=== PATIENT | female | born 1985 | race Caucasian/White ===

== ENCOUNTER 2023-03-29 18:12 | Observation (INO) | payer OTHER, SELFPAY ==
[2023-03-29 18:40] VITALS: BP 109/74; PULSE 81; RESP 17; TEMP 36.9; O2SAT 99; BMI 40.3
--- NOTE | 2023-03-29 19:07 | PC.NURSE ---
1845 vitals obtained and patient placed back in lobby until a room in ED is available
[2023-03-29 20:15] VITALS: BP 120/81; PULSE 90; RESP 18; TEMP 37.2; O2SAT 100
[2023-03-29 20:24] LABS: Coronavirus 19, PCR Not Detected (NotDetected)
[2023-03-29 20:25] LABS: Influenza A, PCR Not Detected (NotDetected); Influenza B, PCR Not Detected (NotDetected)
--- NOTE | 2023-03-29 20:29 | CT_ITS ---
PROCEDURE INFORMATION: Exam: CT Abdomen And Pelvis With Contrast Exam date and time: 03/29/2023 8:50 PM Age: 37 years old Clinical indication: Abdominal pain; Localized; Right upper quadrant (ruq); Prior surgery; Surgery date: 1-6 months; Surgery type: , tubal ligation; Additional info: Ruq pain, vomiting, tenderness TECHNIQUE: Imaging protocol: Computed tomography of the abdomen and pelvis with contrast. Radiation optimization: All CT scans at this facility use at least one of these dose optimization techniques: automated exposure control; mA and/or kV adjustment per patient size (includes targeted exams where dose is matched to clinical indication); or iterative reconstruction. Contrast material: ISOVUE; Contrast volume: 75 ml; Contrast route: IV; REPORTING DATA: Count of CT and Cardiac NM exams in prior 12 months: This patient has received 0 known CTs and 0 known cardiac nuclear medicine studies in the 12 months prior to the current study. COMPARISON: No relevant prior studies available. FINDINGS: Liver: Normal. No mass. Gallbladder and bile ducts: Normal. No calcified stones. No ductal dilation. Pancreas: Normal. No ductal dilation. Spleen: Normal. No splenomegaly. Adrenal glands: Right adrenal nodule measures 1.7 x 1.3 cm, further characterization not possible on current study. Left adrenal gland unremarkable. Kidneys and ureters: Normal. No hydronephrosis. Stomach and bowel: Unremarkable. No obstruction. No mucosal thickening. Appendix: Appendix distended to 10 mm with minimal adjacent inflammatory changes. Appendix retrocecal and directed superiorly. No evidence of perforation or drainable collection. Concerning for early appendicitis. Intraperitoneal space: Unremarkable. No free air. No significant fluid collection. Vasculature: Unremarkable. No abdominal aortic aneurysm. Lymph nodes: Unremarkable. No enlarged lymph nodes. Urinary bladder: Unremarkable as visualized. Reproductive: Unremarkable as visualized. Bones/joints: Unremarkable. No acute fracture. Soft tissues: Unremarkable. IMPRESSION: 1. Appendix distended to 10 mm with minimal adjacent inflammatory changes. Appendix retrocecal and directed superiorly. No evidence of perforation or drainable collection. Concerning for early appendicitis. 2. Right adrenal nodule measures 1.7 x 1.3 cm, further characterization not possible on current study.
--- NOTE | 2023-03-29 20:29 | HMH.EDGENADL ---
Discharge Plan Disposition Chief Complaint: Fever Prescriptions Prescriptions: No Action No Known Home Medications Referrals Follow up/Referrals: Provider,Referral, [Primary Care Provider] - See instructions Clinical Impressions Clinical Impression: Acute appendicitis Discharge ED Provider: Bubba Burkett General Adult HPI General Chief complaint: Fever Stated complaint: .5, MENDEZ abd pain Time Seen by Provider: 03/29/23 18:13 Mode of Arrival: Wheelchair Source of Information: Patient Limitations: No Limitations Description of Symptoms (Recalled from ER Triage Doc. by RN): Pt c/o headache, fever tmax 102.5 this AM, insicion pain, and passing large clots with her first period 3 mn post partem. She took Aleve @ 1100 today and currently temp is 98.4. Pt was seen @ [facility] about 2 wk ago and had labs d/t low abd pain. She was told Your period is about to come and it will probably be bad . She had a tubal with her recent . Denies any N/V/D. Denies cough or SOA. She does noted hurts to breathe sometimes . History of Present Illness HPI narrative: 37-year-old female presenting with multiple complaints. Patient states that she is now 3 months out from section. States that she has been having pain on and off for the past couple weeks. Got acutely worse today. Was seen at an outside facility, given Toradol about 2 weeks ago and discharged home. Today, similar pain, however patient states it is worse and throbbing. Lower abdominal, severe intensity, stabbing, does not radiate. Not associated with vaginal discharge or bleeding, no dysuria, hematuria, vomiting, but patient states she had a fever of almost 103 today. Responsive to Tylenol. Related Data Home Medications Medication Instructions Recorded Confirmed No Known Home Medications 03/29/23 03/29/23 Allergies Allergy/AdvReac Type Severity Reaction Status Date / Time No Known Allergies Allergy Verified 03/29/23 19:00 [facility] Disclaimer: The information contained in this section may have been updated after the patient was seen, as this information can be updated by other users. Social History Smoking Status: Current every day smoker alcohol intake: never current occupational status: employed Travel in the last 8 weeks: None ROS Obtained: Yes All systems reviewed & no additional complaints except as documented Physical Exam General General appearance: alert, in no apparent distress, in distress and obese Head Head exam: atraumatic and normocephalic Eye Eye exam: Present normal appearance, PERRL and EOMI ENT ENT exam: Present mucous membranes moist Neck Neck exam: Present normal inspection, full ROM and trachea midline Respiratory Respiratory exam: Present normal lung sounds bilaterally; Absent respiratory distress, wheezes, stridor, accessory muscle use or prolonged expiratory phase Cardiovascular Cardiovascular exam: Present regular rate and normal rhythm Abdominal Exam Abdominal exam: Present soft, tenderness and Day's sign; Absent distention, guarding, rebound, rigidity or normal bowel sounds Abdominal tenderness: Present RUQ (Day sign positive. Patient with severe pain with deep palpation.) and epigastrium; Absent suprapubic (No tenderness overlying section scar) Extremities Exam Extremities exam: Absent edema Neurological Exam Neurological exam: Present alert, oriented X3, CN II-XII intact and normal gait; Absent motor sensory deficit Skin Skin exam: Present warm and dry; Absent diaphoresis or erythema Medical Decision Making Medical Records Medical records reviewed: Yes I reviewed the patient's medical records. Manuel Inquiry Pt receiving controlled substance: No Manuel was queried for this patient: No Vital Signs: 03/29/23 18:40 03/29/23 20:15 Temperature 98.4 F 98.9 F Temperature Source Oral Oral Pulse Rate 90 Pulse Rate
[2023-03-29 20:47] LABS: Microscopic, Urine URINE MICROSCOPIC (MICROSCOPIC)
--- NOTE | 2023-03-29 20:47 | PC.NURSE ---
pt to radiology
[2023-03-29 20:49] LABS: Appearance,Urine CLEAR (Clear); Basophils % 0.2 % (0.1-2.0); Bilirubin,Urine Negative (Negative); Blood, Urine 1+ (Negative); Color,Urine YELLOW (Yellow); Eosinophils % 0.5 % (0.1-12.0); Glucose,Urine (UA) Negative (Negative); Hemoglobin 12.7 g/dL (12.2-16.2); Ketones,Urine Negative (Negative); Leukocyte Esterase,Urine Negative (Negative); Lymphocytes # 1.5 K/mm3 (0.7-4.5); Lymphocytes % 19.6 % (10-50); Mean Corpuscular HGB Conc 31.8 g/dL (31.8-35.4); Mean Corpuscular Hemoglobin 27.1 pg (27.0-31.2); Mean Corpuscular Volume 85.2 fl (81-99); Mean Platelet Volume 7.6 fl (7.4-10.4); Monocytes # 0.4 K/mm3 (0.1-1.0); Neutrophils # 5.9 K/mm3 (1.8-7.8); Neutrophils % 74.7 % (37.0-80.0); Nitrate,Urine Negative (Negative); PH,Urine 6.5 (5.0-8.5); Platelet Count 360 K/mm3 (142-424); Protein,Urine Negative (Negative); Red Blood Count 4.69 M/mm3 (4.20-5.40); Red Cell Distribution Width 15.2 % (11.5-17.5); Specific Gravity, Urine 1.015 (1.005-1.030); Urobilinogen,Urine 0.2 EU/dl (0.2); White Blood Count 7.8 K/mm3 (4.8-10.8)
[2023-03-29 20:52] LABS: Chloride 103 mmol/L (98-107); Sodium 136 mmol/L (136-145)
[2023-03-29 20:53] LABS: Potassium 3.5 mmoL/L (3.5-5.1)
[2023-03-29 20:55] LABS: Alanine Aminotransferase 26 U/L (12-78); Alkaline Phosphatase 91 U/L (38-126); Anion Gap 10.5 mEq/L (5-15); Aspartate Amino Transferase 31 U/L (14-36); Bilirubin,Total 0.2 mg/dl (0.2-1.3); Blood Urea Nitrogen 6 mg/dl (7-17); Calcium 8.3 mg/dl (8.4-10.2); Carbon Dioxide 26 mmol/L (22.0-30.0); Creatinine Clearance Estimated 195 mL/min (50-200); Estimated Glomerular Filt Rate 94 ml/min (>60); GFR (African American) 113 ML/MIN (>60); Glucose 94 mg/dl (74-100); Lipase 25 U/L (23-300)
[2023-03-29 20:56] LABS: Albumin Level 3.9 g/dl (3.5-5.0); Total Protein,Serum 7.9 g/dl (6.3-8.2)
[2023-03-29 21:13] LABS: HCG,Quantitative < 2 mIU/ml (0-5.42)
[2023-03-29 21:51] LABS: Lactic Acid < 0.5 mmol/L (0.7-2.1)
--- NOTE | 2023-03-29 21:53 | PC.NURSE ---
Dr. Salcido pageheather
--- NOTE | 2023-03-29 21:54 | PC.NURSE ---
ED doctor on phone with Dr. Salcido
--- NOTE | 2023-03-29 21:59 | PC.NURSE ---
House notified for admission
[2023-03-29 22:02] LABS: RBC,Urine Occasional #/hpf (0-3); Squamous Epithelial Cell,Urine Occasional #/hpf (0-5); WBC,Urine Occasional #/hpf (0-3)
--- NOTE | 2023-03-29 22:12 | PC.NURSE ---
Report given to ORLIN Bautista; Awaiting transport
[2023-03-29 22:14] VITALS: BP 97/53; PULSE 85; RESP 19; TEMP 37.2; O2SAT 95
--- NOTE | 2023-03-29 22:28 | EXP.HP ---
History of Present Illness *Admission Date: 03/29/23 *Reason for visit:: RLQ abd pain *History of present illness: This is a 37-year-old morbidly obese female with no significant medical history other than current smoker and recent , presented with worsened abdominal pain, vomit and fever. Patient stated that she is now 3 months out from section. Pain got acutely worse today, initially patient blamed on the , so she was seen at an outside facility, given Toradol and discharged home. Pain is described in lower abdominal, severe intensity, stabbing, does not radiate. Not associated with vaginal discharge or bleeding, no dysuria, hematuria, has vomiting and had a fever of almost 103 today. Responsive to Tylenol. Admitted for treatment and management. [facility] Disclaimer: The information contained in this section may have been updated after the patient was seen, as this information can be updated by other users. Medical History (Updated 03/30/23 @ 02:44 by Keegan Gomez APRN) Pneumonia Surgical History (Updated 03/29/23 @ 22:47 by Susi Jiménez RN) H/O dilation and curettage History of Social History (Updated 03/29/23 @ 22:48 by Susi Jiménez RN) Smoking Status: Current every day smoker tobacco type: cigarettes packs per day: 1 years smoked: 25 quit status: not considering quitting alcohol intake: never current occupational status: employed Travel in the last 8 weeks: None Review of Systems Review of Systems Review of systems:: pertinent systems reviewed and negative unless documented below Meds Home Medications and Allergies Home Medications Medication Instructions Recorded Confirmed Type No Known Home Medications 03/29/23 03/29/23 History New Prescriptions to Start Prescriptions: Allergies Allergy/AdvReac Type Severity Reaction Status Date / Time No Known Allergies Allergy Verified 03/29/23 19:00 Exam Data for Last 24 hours Vital signs and Labs for Last 24 Hours: Temp Pulse Resp BP Pulse Ox O2 Del Method 98.9 F 85 19 97/53 L 100 Room Air 03/29/23 22:14 03/29/23 22:14 03/29/23 22:14 03/29/23 22:14 03/29/23 20:15 03/29/23 22:14 Laboratory Results - last 24 hr 03/29/23 20:20: SARS-CoV-2 (PCR) Not detected, Influenza A Untype (PCR) Not detected, Influenza Type B (PCR) Not detected 03/29/23 20:27: WBC 7.8, RBC 4.69, Hgb 12.7, Hct 40.0, MCV 85.2, MCH 27.1, MCHC 31.8, RDW 15.2, Plt Count 360, MPV 7.6, Neut % (Auto) 74.7, Lymph % (Auto) 19.6, [place] % (Auto) 5.0, Eos % (Auto) 0.5, Baso % (Auto) 0.2, Neut # (Auto) 5.9, Lymph # (Auto) 1.5, [place] # (Auto) 0.4, Eos # (Auto) 0.0, Baso # (Auto) 0.0, Sodium 136, Potassium 3.5, Chloride 103, Carbon Dioxide 26, Anion Gap 10.5, BUN 6 L, Creatinine 0.70, Estimated Creat Clear 195, Estimated GFR 94, Est GFR ( Amer) 113, Glucose 94, Calcium 8.3 L, Total Bilirubin 0.2, AST 31, ALT 26, Alkaline Phosphatase 91, Total Protein 7.9, Albumin 3.9, Globulin 4.0 H, Albumin/Globulin Ratio 1.0 L, Lipase 25, HCG, Quant < 2, Urine Color Yellow, Urine Appearance Clear, Urine pH 6.5, Ur Specific [place] 1.015, Urine Protein Negative, Urine Glucose (UA) Negative, Urine Ketones Negative, Urine Blood 1+, Urine Nitrate Negative, Urine Bilirubin Negative, Urine Urobilinogen 0.2, Ur Leukocyte Esterase Negative, Urine RBC Occasional, Urine WBC Occasional, Ur Squamous Epith Cells Occasional, Urine Bacteria None 03/29/23 20:32: Lactate < 0.5 L I & O for Last 24 hours: Intake & Output 03/26/23 03/27/23 03/28/23 03/29/23 23:59 23:59 23:59 23:59 Weight 113.398 kg Constitutional Constitutional: mild distress and cooperative *Routine HEENT Exam Head: Present normocephalic and atraumatic Eye: Present EOMI, PERRL and normal accommodation ENT: Present mucous membranes moist *Routine Neck Exam Neck: Present supple, full ROM and trachea midline *Routine Respiratory Exam Respiratory: Present normal r
--- NOTE | 2023-03-29 22:32 | PC.NURSE ---
pt arrived to floor via wheelchair @[id number]
[2023-03-29 22:39] VITALS: BP 120/73; PULSE 79; RESP 20; TEMP 36.7; O2SAT 97
[2023-03-30] VITALS (14 sets, daily range): BP systolic 107–158; BP diastolic 47–91; PULSE 69–93; RESP 16–18; TEMP 36.7–37; O2SAT 90–99; BMI 44.7
--- NOTE | 2023-03-30 04:36 | PC.NURSE ---
pt admitted for appendicitis. npo after mn for appendectomy in am. vss, a.febrile, reports r lower quadrant pain treated with prn
[2023-03-30 06:36] LABS: Basophils % 0.4 % (0.1-2.0); Eosinophils # 0.1 K/mm3 (0.0-0.4); Eosinophils % 1.4 % (0.1-12.0); Hematocrit 38.2 % (37.0-47.0); Lymphocytes % 38.2 % (10-50); Mean Corpuscular HGB Conc 31.5 g/dL (31.8-35.4); Mean Corpuscular Hemoglobin 26.8 pg (27.0-31.2); Mean Platelet Volume 7.6 fl (7.4-10.4); Monocytes # 0.4 K/mm3 (0.1-1.0); Monocytes % 6.8 % (1.7-9.3); Neutrophils # 2.8 K/mm3 (1.8-7.8); Neutrophils % 53.3 % (37.0-80.0); Platelet Count 314 K/mm3 (142-424); Red Blood Count 4.49 M/mm3 (4.20-5.40); Red Cell Distribution Width 15.4 % (11.5-17.5); White Blood Count 5.3 K/mm3 (4.8-10.8)
--- NOTE | 2023-03-30 06:37 | EXP.SURG.CON ---
History of Present Illness *Admission Date: 03/29/23 *Reason for visit:: Appendicitis *History of present illness: Patient is a 37-year-old morbidly obese female with BMI of 45 originally from [place], [place] who currently resides in [place], [place]. She had a relatively recent 3 months ago. She has had some pain near her Pfannenstiel incision 2 weeks ago. She had been seen and evaluated at outside facility and managed as an outpatient. Her symptoms resolved. However, she had significant exacerbation of pain yesterday on 03/29/2023. She had some associated vomiting and fever. Initially she felt the pain was related to her surgical site. She presented to the emergency department here at [facility] in the evening of 03/29/2023 where she describes severe stabbing intense pain. She does states she has had some fevers. On examination she was noted to have tenderness more in the right mid and upper abdomen. Evaluation in the emergency department revealed normal white blood cell count and differential. Electrolytes, liver function test, pancreatic enzymes, were normal. She had CT scan of the abdomen and pelvis performed which revealed appendix distended to 10 mm with minimal adjacent inflammatory changes consistent with early uncomplicated appendicitis. It was noted to be in a retrocecal location. Surgery was contacted regarding these findings on this patient with seemingly uncomplicated early appendicitis and recommendations were for inpatient management for her appendicitis. [facility] Disclaimer: The information contained in this section may have been updated after the patient was seen, as this information can be updated by other users. Medical History (Updated 03/30/23 @ 02:44 by Keegan Gomez APRN) Pneumonia Surgical History (Updated 03/29/23 @ 22:47 by Susi Jiménez RN) H/O dilation and curettage History of Social History (Updated 03/29/23 @ 22:48 by Susi Jiménez RN) Smoking Status: Current every day smoker tobacco type: cigarettes packs per day: 1 years smoked: 25 quit status: not considering quitting alcohol intake: never current occupational status: employed Travel in the last 8 weeks: None Review of Systems Review of Systems Review of systems:: pertinent systems reviewed and negative unless documented below Meds Home Medications and Allergies Home Medications Medication Instructions Recorded Confirmed Type No Known Home Medications 03/29/23 03/29/23 History New Prescriptions to Start Prescriptions: Allergies Allergy/AdvReac Type Severity Reaction Status Date / Time No Known Allergies Allergy Verified 03/29/23 19:00 Exam (Inpt) Vital signs and Labs for Last 24 Hours: Temp Pulse Resp BP Pulse Ox O2 Del Method 98.1 F 80 16 113/68 98 Room Air 03/30/23 04:00 03/30/23 04:00 03/30/23 04:00 03/30/23 04:00 03/30/23 04:00 03/30/23 05:00 Laboratory Results - last 24 hr 03/29/23 20:20: SARS-CoV-2 (PCR) Not detected, Influenza A Untype (PCR) Not detected, Influenza Type B (PCR) Not detected 03/29/23 20:27: WBC 7.8, RBC 4.69, Hgb 12.7, Hct 40.0, MCV 85.2, MCH 27.1, MCHC 31.8, RDW 15.2, Plt Count 360, MPV 7.6, Neut % (Auto) 74.7, Lymph % (Auto) 19.6, [place] % (Auto) 5.0, Eos % (Auto) 0.5, Baso % (Auto) 0.2, Neut # (Auto) 5.9, Lymph # (Auto) 1.5, [place] # (Auto) 0.4, Eos # (Auto) 0.0, Baso # (Auto) 0.0, Sodium 136, Potassium 3.5, Chloride 103, Carbon Dioxide 26, Anion Gap 10.5, BUN 6 L, Creatinine 0.70, Estimated Creat Clear 195, Estimated GFR 94, Est GFR ( Amer) 113, Glucose 94, Calcium 8.3 L, Total Bilirubin 0.2, AST 31, ALT 26, Alkaline Phosphatase 91, Total Protein 7.9, Albumin 3.9, Globulin 4.0 H, Albumin/Globulin Ratio 1.0 L, Lipase 25, HCG, Quant < 2, Urine Color Yellow, Urine Appearance Clear, Urine pH 6.5, Ur Specific [place] 1.015, Urine Protein Negative, Urine Glucose (UA) Negative, Urine Ketones Negative, Uri
[2023-03-30 06:49] LABS: Chloride 106 mmol/L (98-107); Sodium 137 mmol/L (136-145)
[2023-03-30 06:50] LABS: Potassium 3.8 mmoL/L (3.5-5.1)
[2023-03-30 06:52] LABS: Alanine Aminotransferase 21 U/L (12-78); Albumin Level 3.5 g/dl (3.5-5.0); Alkaline Phosphatase 93 U/L (38-126); Anion Gap 10.8 mEq/L (5-15); Aspartate Amino Transferase 28 U/L (14-36); Blood Urea Nitrogen 9 mg/dl (7-17); Calcium 7.9 mg/dl (8.4-10.2); Carbon Dioxide 24 mmol/L (22.0-30.0); Creatinine Clearance Estimated 102 mL/min (50-200); Estimated Glomerular Filt Rate 94 ml/min (>60); GFR (African American) 113 ML/MIN (>60); Globulin 3.6 g/dL (1.3-3.2); Glucose 97 mg/dl (74-100); Total Protein,Serum 7.1 g/dl (6.3-8.2)
[2023-03-30 06:53] LABS: Magnesium 2.1 mg/dl (1.6-2.3)
[2023-03-30 06:55] LABS: Bilirubin,Total 0.1 mg/dl (0.2-1.3)
--- NOTE | 2023-03-30 07:32 | EXP.PN ---
Subjective *Date: 03/30/23 *Time: 10:24 Interval history: Patient seen and examined at bedside today. Nursing staff report that she remains afebrile with stable vital signs and saturating appropriately on room air. General surgery has evaluated the patient. The patient reports adequate pain control. She is NPO. Exam Data for Last 24 hours Vital signs and Labs for Last 24 Hours: Temp Pulse Resp BP Pulse Ox O2 Del Method 98.1 F 80 16 113/68 98 Room Air 03/30/23 04:00 03/30/23 04:00 03/30/23 04:00 03/30/23 04:00 03/30/23 04:00 03/30/23 05:00 Laboratory Results - last 24 hr 03/29/23 20:20: SARS-CoV-2 (PCR) Not detected, Influenza A Untype (PCR) Not detected, Influenza Type B (PCR) Not detected 03/29/23 20:27: WBC 7.8, RBC 4.69, Hgb 12.7, Hct 40.0, MCV 85.2, MCH 27.1, MCHC 31.8, RDW 15.2, Plt Count 360, MPV 7.6, Neut % (Auto) 74.7, Lymph % (Auto) 19.6, [place] % (Auto) 5.0, Eos % (Auto) 0.5, Baso % (Auto) 0.2, Neut # (Auto) 5.9, Lymph # (Auto) 1.5, [place] # (Auto) 0.4, Eos # (Auto) 0.0, Baso # (Auto) 0.0, Sodium 136, Potassium 3.5, Chloride 103, Carbon Dioxide 26, Anion Gap 10.5, BUN 6 L, Creatinine 0.70, Estimated Creat Clear 195, Estimated GFR 94, Est GFR ( Amer) 113, Glucose 94, Calcium 8.3 L, Total Bilirubin 0.2, AST 31, ALT 26, Alkaline Phosphatase 91, Total Protein 7.9, Albumin 3.9, Globulin 4.0 H, Albumin/Globulin Ratio 1.0 L, Lipase 25, HCG, Quant < 2, Urine Color Yellow, Urine Appearance Clear, Urine pH 6.5, Ur Specific [place] 1.015, Urine Protein Negative, Urine Glucose (UA) Negative, Urine Ketones Negative, Urine Blood 1+, Urine Nitrate Negative, Urine Bilirubin Negative, Urine Urobilinogen 0.2, Ur Leukocyte Esterase Negative, Urine RBC Occasional, Urine WBC Occasional, Ur Squamous Epith Cells Occasional, Urine Bacteria None 03/29/23 20:32: Lactate < 0.5 L 03/30/23 06:05: WBC 5.3 D, RBC 4.49, Hgb 12.0 L, Hct 38.2, MCV 85.0, MCH 26.8 L, MCHC 31.5 L, RDW 15.4, Plt Count 314, MPV 7.6, Neut % (Auto) 53.3, Lymph % (Auto) 38.2, [place] % (Auto) 6.8, Eos % (Auto) 1.4, Baso % (Auto) 0.4, Neut # (Auto) 2.8, Lymph # (Auto) 2.0, [place] # (Auto) 0.4, Eos # (Auto) 0.1, Baso # (Auto) 0.0, Sodium 137, Potassium 3.8, Chloride 106, Carbon Dioxide 24, Anion Gap 10.8, BUN 9 D, Creatinine 0.70, Estimated Creat Clear 102, Estimated GFR 94, Est GFR ( Amer) 113, Glucose 97, Calcium 7.9 L, Magnesium 2.1, Total Bilirubin 0.1 L, AST 28, ALT 21, Alkaline Phosphatase 93, Total Protein 7.1, Albumin 3.5 D, Globulin 3.6 H, Albumin/Globulin Ratio 1.0 L I & O for Last 24 hours: Intake & Output 03/27/23 03/28/23 03/29/23 03/30/23 23:59 23:59 23:59 23:59 Output Total 150 / 150 Balance -150 / -150 Weight 113.398 kg 126.371 kg Constitutional Constitutional: no acute distress, morbidly obese and cooperative *Routine HEENT Exam Head: Present normocephalic Eye: Present EOMI and PERRL ENT: Present mucous membranes moist *Routine Neck Exam Neck: Present supple *Routine Respiratory Exam Respiratory: Present CTA bilaterally, normal respiratory effort and symmetric chest movement; Absent respiratory distress *Routine Cardiovascular Exam Cardiovascular: Present RRR, Normal S1 and Normal S2 *Routine Abdominal Exam Abdominal: Present soft, normoactive bowel sounds and tenderness (RLQ) *Routine Extremities Exam Extremities: Present full ROM and normal capillary refill; Absent cyanosis, clubbing or edema *Routine Skin Exam Skin: Present warm; Absent rash *Routine Neurological Exam Neurological: Present alert, oriented X3, moving all extremities, vision grossly intact, hearing grossly intact and normal speech; Absent sensory deficit or motor deficit Routine Psychiatric Exam Psychiatric: Present normal affect, normal thought process, cooperative, good insight and good judgment Assessment and Plan *Assessment and plan (1) Abdominal pain: Status: Acute Qualifiers: Abdominal location: lower abdomen, unspecified Quali
--- NOTE | 2023-03-30 12:12 | P.PNANES_ITS ---
[facility] Disclaimer: The information contained in this section may have been updated after the patient was seen, as this information can be updated by other users. Medical History (Updated 03/30/23 @ 02:44 by Keegan Gomez APRN) Pneumonia Surgical History (Updated 03/29/23 @ 22:47 by Susi Jiménez RN) H/O dilation and curettage History of Social History (Updated 03/29/23 @ 22:48 by Susi Jiménez RN) Smoking Status: Current every day smoker tobacco type: cigarettes packs per day: 1 years smoked: 25 quit status: not considering quitting alcohol intake: never substance use type: denies use current occupational status: employed Travel in the last 8 weeks: None [facility] Anesthesia Checklist Patient Identification Patient Identification: Arm Band Structural Data Admitted From: Inpatient Planned Operative Procedure/s: Laparoscopic Appendectomy Consent for Planned Operative Procedure(s) Verified: Yes Verified Documents: Surgical Consent and History and Physical NPO Status Verified Time NPO: 00:00 Additional verifications Anesthesia Reactions: No Airway Assessment Mallampati Score:: Class II C-Spine Mobility Assessed: Yes TMJ Mobility Assessed: Yes Dentition: Poor Dentition Neurological Assessment Level of Consciousness: Awake and Alert Anesthesia Plan Anesthesia Risk discussed: Yes Anesthesia Plan: Verified ASA Class: III Anesthesia Type: General
--- NOTE | 2023-03-30 12:37 | EXP.OP.NOTE ---
Date of procedure: 03/30/23 Pre-op Diagnosis:: Acute appendicitis Post-op Diagnosis:: Same Procedure performed:: Laparoscopic appendectomy Surgeon:: Octavio Salcido MD TELECOM FIELD TECHNICIAN:: Noble Fish Anesthesia: DULCE MARIA Estimated blood loss (mL): 20 Clinical Note:: Patient is a 37-year-old morbidly obese female with BMI of 45 originally from [place], [place] who currently resides in [place], [place]. She had a relatively recent 3 months ago. She has had some pain near her Pfannenstiel incision 2 weeks ago. She had been seen and evaluated at outside facility and managed as an outpatient. Her symptoms resolved. However, she had significant exacerbation of pain yesterday on 03/29/2023. She had some associated vomiting and fever. Initially she felt the pain was related to her surgical site. She presented to the emergency department here at [facility] in the evening of 03/29/2023 where she describes severe stabbing intense pain. She does states she has had some fevers. On examination she was noted to have tenderness more in the right mid and upper abdomen. Evaluation in the emergency department revealed normal white blood cell count and differential. Electrolytes, liver function test, pancreatic enzymes, were normal. She had CT scan of the abdomen and pelvis performed which revealed appendix distended to 10 mm with minimal adjacent inflammatory changes consistent with early uncomplicated appendicitis. It was noted to be in a retrocecal location. Surgery was contacted regarding these findings on this patient with seemingly uncomplicated early appendicitis and recommendations were for inpatient management for her appendicitis. Operative findings:: She had a partially retrocecal appendix which was mild to moderately inflamed characterized by induration. There was evidence of lower pelvic diastases essentially as a incisional hernia from her pain and still with herniated omentum. Operative note:: Patient was taken the operating room. She was given preoperative intravenous antibiotics. In the operating room she was placed in a supine position. General anesthesia was induced. Padron catheter was placed. Abdomen was prepped and draped in the standard surgical fashion. Subumbilical skin incision was made and while performing abdominal wall lift Veress needle was inserted. 12 mm optical trocar was inserted at the umbilicus. Intraperitoneal contents were visualized. She was noted to have a anterior pelvic hernia with some herniated omentum from Pfannenstiel incision. 5 mm trocar was inserted in the left lower abdomen. Additional 5 mm trocar was inserted in the right upper abdomen. 10 mm laparoscope was placed with a 5 mm 30 degree laparoscope. The omentum was reduced from the incisional hernia. Patient was positioned in Trendelenburg and left side down. Omentum was retracted superiorly. Cecum was identified and retracted medially. Appendix was identified and was found to be indurated and inflamed. It was grasped with an endoscopic Jenniffer. There were some retrocecal adhesions which were carefully taken down using HERMINIO ultrasonic harmonic didier delivering the appendix anteriorly. The mesoappendix was then carefully divided with HERMINIO ultrasonic harmonic didier with care taken to coagulate the appendiceal artery in the process. Dissection was carried down to the appendiceal base. The appendix was divided at its base with an endoscopic KAPIL linear cutting stapling device. Appendix was placed within an Endo Catch retrieval device and removed from the peritoneal cavity via the umbilical trocar site. Residual blood around the mesoappendix and the reduced omentum from the hernia was suctioned free. Hemostasis was achieved with use of HERMINIO ultrasonic harmonic didier. There appeared to be good hemostasis. Staple line at the appendiceal stump was inspected for integrity and hemostasis. Trocars were then removed as CO2 pneumoperitoneum was evacuat
--- NOTE | 2023-03-30 12:49 | P.PNANES_ITS ---
[facility] Anesthesia Record Part I Anesthesia Record I Intake, IV Amount: 1,000 Hydration: Adequate Estimated blood loss (mL): 10 Urine output (mL): 100 Blood Products used (#): none Blood Pressure: 137/87 SaO2: 92 Pulse Rate: 93 Airway Patency: Patent Respiratory Rate: 16 Temperature: 98.6 F Patient is:: Drowsy and Stable Stable to PACU at:: 12:40
--- NOTE | 2023-03-30 13:44 | PC.NURSE ---
[facility] c/d/i.
[2023-03-30 15:32] LABS: Microscopic,Cath URINE MICROSCOPIC (MICROSCOPIC)
[2023-03-30 16:21] LABS: Appearance,Urine/Cath CLEAR (Clear); Bilirubin,Cath Negative (Negative); Blood, Urine/Cath 1+ (Negative); Color,Urine/Cath YELLOW (Yellow); Glucose,Urine/Cath (UA) Negative (Negative); Ketones,Urine/Cath Negative (Negative); Leukocyte Esterase,Cath Negative (Negative); Nitrate,Cath Negative (Negative); Protein,Urine/Cath TRACE (Negative); Specific Gravity, Urine/Cath >= 1.030 (1.005-1.030)
[2023-03-30 16:56] LABS: Bacteria,Urine/Cath TRACE /lpf; WBC,Urine/Cath Occasional #/hpf (0-3)
--- NOTE | 2023-03-30 17:13 | EXP.DC.SUM ---
General Admission date:: 03/29/23 Discharge date: 03/30/23 HPI HPI HPI: Patient is a 37-year-old morbidly obese female with BMI of 45 originally from [place], [place] who currently resides in [place], [place]. She had a relatively recent 3 months ago. She has had some pain near her Pfannenstiel incision 2 weeks ago. She had been seen and evaluated at outside facility and managed as an outpatient. Her symptoms resolved. However, she had significant exacerbation of pain yesterday on 03/29/2023. She had some associated vomiting and fever. Initially she felt the pain was related to her surgical site. She presented to the emergency department here at [facility] in the evening of 03/29/2023 where she describes severe stabbing intense pain. She does states she has had some fevers. On examination she was noted to have tenderness more in the right mid and upper abdomen. Evaluation in the emergency department revealed normal white blood cell count and differential. Electrolytes, liver function test, pancreatic enzymes, were normal. She had CT scan of the abdomen and pelvis performed which revealed appendix distended to 10 mm with minimal adjacent inflammatory changes consistent with early uncomplicated appendicitis. It was noted to be in a retrocecal location. Surgery was contacted regarding these findings on this patient with seemingly uncomplicated early appendicitis and recommendations were for inpatient management for her appendicitis. Hospital Course Hospital Course Hospital Course: The patient was admitted to the [facility] floor with general surgery consultation. She was provided with IV fluid resuscitation, antiemetics and pain relief. She received perioperative antibiotic therapy and underwent laparoscopic appendectomy with no identified complications. Postoperatively she reported good pain control and tolerated p.o. intake. She identified improvement and inquired about discharge home. General surgery made discharge recommendations and provided opioid pain relief. We have recommended no driving while taking narcotic prescription and to follow lifting restrictions as outlined by general surgery. She understands the importance of tobacco cessation to improve her health. We have recommended follow-up with her PCP and general surgery as scheduled. I spent 35 minutes in [id number] time with the patient and nursing staff concerning the discharge process. We discussed the admitting diagnoses and hospital course. We discussed identified improvement and the patient's desire to be discharged. We reviewed inpatient studies and imaging. The patient voiced understanding on the importance of follow-up with her primary care provider and general surgeon. The patient plans to be compliant with discharge recommendations and follow-up appointments. She understands that she can return to the emergency department with any sudden changes or concerns. Exam Data for Last 24 hours Vital signs and Labs for Last 24 Hours: Temp Pulse Resp BP Pulse Ox O2 Del Method 98.6 F 74 16 112/65 96 Room Air 03/30/23 16:15 03/30/23 16:15 03/30/23 16:15 03/30/23 16:15 03/30/23 16:15 03/30/23 16:39 Laboratory Results - last 24 hr 03/29/23 20:20: SARS-CoV-2 (PCR) Not detected, Influenza A Untype (PCR) Not detected, Influenza Type B (PCR) Not detected 03/29/23 20:27: WBC 7.8, RBC 4.69, Hgb 12.7, Hct 40.0, MCV 85.2, MCH 27.1, MCHC 31.8, RDW 15.2, Plt Count 360, MPV 7.6, Neut % (Auto) 74.7, Lymph % (Auto) 19.6, Bertie % (Auto) 5.0, Eos % (Auto) 0.5, Baso % (Auto) 0.2, Neut # (Auto) 5.9, Lymph # (Auto) 1.5, Bertie # (Auto) 0.4, Eos # (Auto) 0.0, Baso # (Auto) 0.0, Sodium 136, Potassium 3.5, Chloride 103, Carbon Dioxide 26, Anion Gap 10.5, BUN 6 L, Creatinine 0.70, Estimated Creat Clear 195, Estimated GFR 94, Est GFR ( Amer) 113, Glucose 94, Calcium 8.3 L, Total Bilirubin 0.2, AST 31, ALT 26, Alkaline Phosphatase 91, Total Protein 7.9,
--- NOTE | 2023-03-31 08:24 | EXP.ANES.II ---
[facility] Anesthesia Record Part II Anesthesia Record Part II Discharge Time: 13:10 Destination: Surgical Day Care (OP Surgery) PACU nurse assessment reviewed?: Yes Patient Condition:: Good Anesthesia Complications:: None Swallowing reflex intact?: Yes Airway Patency: Patent Cyanosis?: No Blood Pressure: 138/89 SaO2: 94 Respiratory Rate: 17 Pulse Rate: 80 Temperature: 98.6 F Mental Status: Alert & Oriented Pain level:: 3 Nausea and/or vomitting:: None Intake, IV Amount: 1,000 Hydration: Adequate
[2023-03-31 08:26] VITALS: BP 138/89; PULSE 80; RESP 17; TEMP 37; O2SAT 94
--- NOTE | 2023-03-31 16:05 | CARE MANAGER ---
CM called and spoke with patient to discuss recent discharge. Patient stated that she is doing well, no concerns at time of call. She has called Dr. Salcido's office and left a message in regards to scheduling an appt, and is awaiting their call back. I encouraged her to call again tomorrow if she hasn't heard from them by lunch.
== END 2023-03-30 17:59 | disposition home or self-care (01) ==
LOC: ER 19:50 → 2ND 22:06
PROVIDERS: Nurse Practitioner Family; Surgery; Admitting Provider Internal Medicine Adolescent Medicine; Emergency Provider Emergency Medicine; Visit Provider Internal Medicine Adolescent Medicine
PROC: 0DTJ4ZZ Resection of Appendix, Percutaneous Endoscopic Approach (ICD-10-PCS; CPT 44970; principal; 2023-03-30 12:00)
DX: K35.80 Unspecified acute appendicitis (principal); F17.210 Nicotine dependence, cigarettes, uncomplicated; E66.01 Morbid (severe) obesity due to excess calories; Z68.41 Body mass index [BMI] 40.0-44.9, adult
CPT/HCPCS: 44970; 36415; 74177; 80053; 81001; 83605; 83690; 83735; 84702; 85025; 87070; 87205; 87636; 88304; 99285; G0378; J0131; J2405; Q9967